=== PATIENT | female | born 1960 | race Caucasian/White ===

== ENCOUNTER 2021-10-26 07:15 | Day surgery (SDC) | payer MEDICAID, SELFPAY ==
[~2021-10-26] VITALS: Ht 157.5 cm; Wt 61.2 kg
[2021-10-26] MEDS ORDERED: BENZOCAINE 20% 0.5mL UD SPRAY MM ONE (07:28)
[2021-10-26] MEDS ORDERED: SIMETHICONE 40 MG/0.6 ML ML ONE (07:28)
[2021-10-26] MEDS ORDERED: MEPERIDINE 100 MG INJ. 100 MG/ML VIAL ONE (07:28)
[2021-10-26] MEDS ORDERED: fentaNYL CITRATE/PF 100 MCG/2 ML AMP ONE (08:58)
[2021-10-26] MEDS: MIDAZOLAM HCL 5 MG/5 ML VIAL ONE ×3 (08:59→09:12)
[2021-10-26 17:28] VITALS: BP_SYST 104
== END 2021-10-26 11:20 | disposition home or self-care (01) ==
LOC: SGI 07:15 → SMU 07:18 → SGI 11:20
PROVIDERS: ATTEND Internal Medicine
DX: Z12.11 Encounter for screening for malignant neoplasm of colon (principal); K63.5 Polyp of colon; K57.30 Diverticulosis of large intestine without perforation or abscess without bleeding; K29.50 Unspecified chronic gastritis without bleeding; K29.80 Duodenitis without bleeding; K74.60 Unspecified cirrhosis of liver; K44.9 Diaphragmatic hernia without obstruction or gangrene; K64.8 Other hemorrhoids; Z79.899 Other long term (current) drug therapy; Z20.822 Contact with and (suspected) exposure to COVID-19
CPT/HCPCS: 43239; 45385; 88305; 88312; 88313; 99152; 99153; G0378; J2250; J3010; U0003; J2175